=== PATIENT | male | born 1970 | race Two or more races ===

== ENCOUNTER 2016-12-04 14:28 | Emergency (ER) | payer SELFPAY ==
[~2016-12-04] VITALS: Ht 170.2 cm; Wt 108.9 kg
[2016-12-04 15:31] VITALS: BP 183/91
== END 2016-12-04 22:30 | disposition left against medical advice (07) ==
LOC: ER 14:28
DX: R03.0 Elevated blood-pressure reading, without diagnosis of hypertension (principal); Z53.21 Procedure and treatment not carried out due to patient leaving prior to being seen by health care provider

== ENCOUNTER 2021-08-15 13:32 | Emergency (ER) | payer SELFPAY ==
[~2021-08-15] VITALS: Ht 170.2 cm; Wt 106.6 kg
[2021-08-15 14:02] VITALS: BP 185/90
[2021-08-15 15:10] LABS: Basophils # (auto) 0 10 ^3/uL (0-0.2); Basophils % (auto) 0.7 % (0.0-2.0); Eosinophils # (auto) 0 10 ^3/uL (0-0.8); Eosinophils % (auto) 0.7 % (0.0-7.0); Hematocrit 40.5 % (41.0-53.0); Hemoglobin 13.7 g/dL (13.5-17.5); Lymphocytes # (auto) 1.3 10 ^3/uL (0.4-5.4); Lymphocytes % (auto) 19.5 % (10.0-50.0); Mean Corpuscular Hemoglobin 29.5 pg (28.0-32.0); Mean Corpuscular Hgb Conc. 33.8 g/dL (32.0-36.0); Mean Corpuscular Volume 87.4 fL (80.0-100.0); Monocytes # (auto) 0.3 10 ^3/uL (0-1.3); Monocytes % (auto) 3.8 % (0.0-12.0); Neutrophils # (auto) 5.2 10 ^3/uL (1.6-8.6); Neutrophils % (auto) 75.3 % (37.0-80.0); Nucleated Red Blood Cells % 0.1 %; Red Blood Cells 4.64 10^6/uL (4.5-5.90); White Blood Cell 6.9 10^3/uL (4.4-10.8)
[2021-08-15 15:25] LABS: Albumin 3.7 g/dL (3.4-5.0); Calcium 8.5 mg/dL (8.5-10.1); Potassium 3.7 mmol/L (3.5-5.1)
[2021-08-15 15:30] LABS: BUN/Creatinine Ratio 21.2; Bilirubin, Total 0.5 mg/dL (0.2-1.0); Total Protein 7.2 g/dL (6.4-8.2)
[2021-08-15] MEDS ORDERED: ASPirin 81 mg TAB PO ONE (17:45)
== END 2021-08-15 18:58 | disposition left against medical advice (07) ==
LOC: ER 13:32
DX: I16.0 Hypertensive urgency (principal); R94.31 Abnormal electrocardiogram [ECG] [EKG]; Z53.29 Procedure and treatment not carried out because of patient's decision for other reasons
CPT/HCPCS: 36415; 71046; 80053; 84484; 85025; 93005

== ENCOUNTER 2025-02-27 10:55 | Inpatient (IN) | payer MEDICAID ==
[~2025-02-27] VITALS: Ht 170.2 cm; Wt 113.8 kg
--- NOTE | 2025-02-27 11:15 | ED.PDOC ---
History of Present Illness HPI Comments 54-year-old male who is Hungarian-speaking presents to the ER with prior medical history of hypertension and the chief complaint of palpitations. Patient takes two medications for his hypertension but recently ran out of one of the five days ago. Patient states on having palpitation start this morning at 5:00 a.m. with a headache. Denies chills, fever, N/V/D, SOB, CP. No other associated symptoms, modifiers, recent injuries or sick contacts present at this time. Chief Complaint: Palpitations Time Seen by MD: 11:15 Reviewed Notes: Nurses Notes, Medications, Allergies Allergies: Coded Allergies: NO KNOWN ALLERGIES (Unverified , 08/15/21) Information Source: Patient Mode of Arrival: Ambulatory Severity: Moderate Timing: Hours Duration: Since onset, Hours Prehospital treatment: None Past Medical History PAST MEDICAL HISTORY: HTN Surgical History: Denies all surgeries Family History Family History: Reviewed,noncontributory to illness, Unknown Social History Smoker: Non-Smoker Alcohol: Denies ETOH Use Drugs: Denies Drug Use Lives In: Home Constitutional: denies: chills, diaphoresis, fatigue, fever, malaise, sweats, weakness, others EENTM: denies: blurred vision, double vision, ear bleeding, ear discharge, ear drainage, ear pain, ear ringing, eye pain, eye redness, hearing loss, mouth pain, mouth swelling, nasal discharge, nose bleeding, nose congestion, nose pain, photophobia, tearing, throat pain, throat swelling, voice changes, others Respiratory: denies: cough, hemoptysis, orthopnea, SOB at rest, shortness of breath, SOB with excertion, stridor, wheezing, others Cardiovascular: reports: palpitations; denies: chest pain, dizzy spells, diaphoresis, Dyspnea on exertion, edema, irregular heart beat, left arm pain, lightheadedness, PND, syncope, others Gastrointestinal: denies: abdomen distended, abdominal pain, blood streaked bowels, constipated, diarrhea, dysphagia, difficulty swallowing, hematemesis, melena, nausea, poor appetite, poor fluid intake, rectal bleeding, rectal pain, vomiting, others Genitourinary: denies: burning, dysuria, flank pain, frequency, hematuria, incontinence, penile discharge, penile sore, pain, testicle pain, testicle swelling, urgency, others Neurological: reports: headache; denies: dizziness, fainting, left sided numbness, left sided weakness, numbness, paresthesia, pre-existing deficit, right sided numbness, right sided weakness, seizure, speech problems, tingling, tremors, weakness, others Musculoskeletal: denies: back pain, gout, joint pain, joint swelling, muscle pain, muscle stiffness, neck pain, others Integumetry: denies: bruises, change in color, change in hair/nails, dryness, laceration, lesions, lumps, rash, wounds, others Allergic/Immunocompromised: denies: Difficulty Healing, Frequent Infections, Hives, Itching, others Hematologic/Lymphatic: denies: anemia, blood clots, easy bleeding, easy bruising, swollen glands, others Endocrine: denies: excessive hunger, excessive sweating, excessive thirst, excessive urination, flushing, intolerance to cold, intolerance to heat, unexplained weight gain, unexplained weight loss, others Psychiatric: denies: anxiety, bipolar disorder, depression, hopeless, panic disorder, schizophrenia, sleepless, suicidal, others All Other Systems: Reviewed and Negative Physical Exam General Appearance: Moderate Distress, Normal HEENT: Normal ENT Inspection, Pharynx Normal, TMs Normal Neck: Full Range of Motion, Non-Tender, Normal, Normal Inspection Respiratory: Chest Non-Tender, Lungs Clear, No Accessory Muscle Use, No Respiratory Distress, Normal Breath Sounds Cardiovascular: No Edema, No JVD, No Murmur, No Gallop, Normal Peripheral Pulses, Tachycardia Breast Exam: Deferred Gastrointestinal: No Organomegaly, Non Tender, No Pulsatile Mass, Normal Bowel Sounds, Soft Genitalia: Deferred Pelvic: Deferred Rectal: Deferred Extremities: No calf tenderness, Normal capillary refill, Normal inspection, Normal range of motion, Non-tender, No pedal edema Musculoskeletal : Apperance: Normal Neurologic: Alert, 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 Was a procedure done?: No EKG EKG : Pulse Rate (adult): 118 Model: Normal Cardiac Rhythm: ST Block: None Hypertrophy: None ST: Normal Differential Dx Considerations may include: Tachycardia Electrolyte imbalance X-Ray, Labs, Meds, VS Vital Signs Date Time Temp Pulse Resp B/P (MAP) Pulse Ox O2 Delivery O2 Flow Rate FiO2 02/27/25 12:08 121 02/27/25 11:51 98.8 125 18 165/95 (118) 96 98.8 02/27/25 11:51 125 18 95 Room Air 02/27/25 11:16 118 02/27/25 11:05 118 02/27/25 10:57 98.7 127 15 168/93 98 98.7 Lab Test 02/27/25 11:50 02/27/25 11:11 Range/Units Troponin I High Sensitivity 5 4 </=54 ng/L White Blood Count 9.0 4.4-10.8 10^3/uL Red Blood Count 5.14 4.5-5.90 10^6/uL Hemoglobin 14.9 13.5-17.5 g/dL Hematocrit 44.4 41.0-53.0 % Mean Corpuscular Volume 86.4 80.0-100.0 fL Mean Corpuscular Hemoglobin 29.0 28.0-32.0 pg Mean Corpuscular Hemoglobin Concent 33.6 32.0-36.0 g/dL Red Cell Distribution Width 14.8 H 11.8-14.3 % Platelet Count 281 140-450 10^3/uL Mean Platelet Volume 7.3 6.9-10.8 fL Neutrophils (%) (Auto) 72.2 37.0-80.0 % Lymphocytes (%) (Auto) 21.7 10.0-50.0 % Monocytes (%) (Auto) 4.7 0.0-12.0 % Eosinophils (%) (Auto) 0.5 0.0-7.0 % Basophils (%) (Auto) 0.9 0.0-2.0 % Neutrophils # (Auto) 6.5 1.6-8.6 10 ^3/uL Lymphocytes # (Auto) 2.0 0.4-5.4 10 ^3/uL Monocytes # (Auto) 0.4 0-1.3 10 ^3/uL Eosinophils # (Auto) 0 0-0.8 10 ^3/uL Basophils # (Auto) 0.1 0-0.2 10 ^3/uL Nucleated Red Blood Cells 0.1 % Sodium Level 141 136-145 mmol/L Potassium Level 3.8 3.5-5.1 mmol/L Chloride Level 99 98-107 mmol/L Carbon Dioxide Level 31 20-31 mmol/L Anion Gap 11 5-15 Blood Urea Nitrogen 13 9-23 mg/dL Creatinine 0.88 0.700-1.30 mg/dL Glomerular Filtration Rate Calc 103 >90 mL/min BUN/Creatinine Ratio 14.8 10.0-20.0 Serum Glucose 119 H 74-106 mg/dL Calcium Level 9.4 8.7-10.4 mg/dL Total Bilirubin 0.7 0.2-1.0 mg/dL Aspartate Amino Transferase (AST) 48 H 13-40 U/L Alanine Aminotransferase (ALT) 98 H 7-40 U/L Alkaline Phosphatase 102 46-116 U/L Total Protein 7.9 5.7-8.2 g/dL Albumin 4.6 3.2-4.8 g/dL Patient alert. Complaining of palpitations. EKG reviewed does show sinus tachycardia. Blood pressure elevated. Liver profile elevated. WBC within normal limits. Hemoglobin within normal limits. Unknown why he is tachycardic. No leg swelling. No shortness a breath. Explained to the patient. Continue monitoring. Time of 1ST Reevaluation: 11:45 Reevaluation 1ST: Unchanged Patient Education/Counseling: Diagnosis, Treatment, Prognosis Family Education/Counseling: No Family Present SEPSIS Sepsis Screen Date sepsis recognized/suspect: Feb 27, 2025 Time Sepsis recognized/suspect: 1059 Recent Procedure: No On Antibiotic Therapy: No Respiratory Rate >20: No Heart Rate >90: Yes Temp<36 C (96.8 F) or >38.3 C: No SBP <90 or MAP <65 mmHG: No New Acute Mental Status Change: No Is the patient on CPAP, BIPAP,: No Physician Orders Electrocardigram (02/27/25 12:00) Electrocardigram (02/27/25 14:00) Chest Portable (02/27/25 11:13) Vital Signs Date Time Temp Pulse Resp B/P (MAP) Pulse Ox O2 Delivery O2 Flow Rate FiO2 02/27/25 12:08 121 02/27/25 11:51 98.8 125 18 165/95 (118) 96 98.8 02/27/25 11:51 125 18 95 Room Air 02/27/25 11:16 118 02/27/25 11:05 118 02/27/25 10:57 98.7 127 15 168/93 98 98.7 Laboratory Tests Test 02/27/25 11:11 White Blood Count 9.0 10^3/uL (4.4-10.8) Departure 1 Departure Time of Disposition: 13:04 Impression: Primary Impression: Hypertensive urgency Additional Impressions: Sinus tachycardia Elevated liver enzymes Disposition: ADMITTED INPATIENT Admit to: Med Surg Condition: Guarded Critical Care Note Critical Care Time?: Yes (90 min-critical care time only) Stability Stability form required: No I personally scribed for NOE ABEL MD ([email or web address]) on 02/27/25 at 11:15. Electronically submitted by Percy Aceves ([email or web address]). I personally scribed for NOE ABEL MD ([email or web address]) on 02/27/25 at 11:16. Electronically submitted by Percy Aceves ([email or web address]). NOE ABEL MD Feb 27, 2025 11:15
[2025-02-27 11:23] LABS: Hematocrit 44.4 % (41.0-53.0); Hemoglobin 14.9 g/dL (13.5-17.5); Mean Corpuscular Hemoglobin 29.0 pg (28.0-32.0); Mean Corpuscular Volume 86.4 fL (80.0-100.0); Nucleated Red Blood Cells % 0.1 %
[2025-02-27 11:40] LABS: Albumin 4.6 g/dL (3.2-4.8); Alkaline Phosphatase 102 U/L (46-116); Anion Gap 11 (5-15); BUN/Creatinine Ratio 14.8 (10.0-20.0); Blood Urea Nitrogen 13 mg/dL (9-23); Calcium 9.4 mg/dL (8.7-10.4); Carbon Dioxide 31 mmol/L (20-31); Chloride 99 mmol/L (98-107); Potassium 3.8 mmol/L (3.5-5.1); Sodium 141 mmol/L (136-145); Total Protein 7.9 g/dL (5.7-8.2)
[2025-02-27 11:41] LABS: Bilirubin, Total 0.7 mg/dL (0.2-1.0)
--- NOTE | 2025-02-27 11:41 | DVH ---
CHEST RADIOGRAPH Indication: sob Technique: Single frontal view of the chest was obtained Comparison: None FINDINGS: Lines and Tubes: None Lungs: No focal consolidation. Pleura: No effusion. No pneumothorax. Cardiomediastinal contours: Unremarkable Bones: No acute osseous abnormality. IMPRESSION: 1. No acute cardiopulmonary disease.
[2025-02-27 11:42] LABS: Alanine Aminotransferase 98 U/L (7-40); Glucose 119 mg/dL (74-106)
--- NOTE | 2025-02-27 12:09 | ECG ---
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
--- NOTE | 2025-02-27 19:47 | DVH ---
Procedure: CT HEAD WITHOUT CONTRAST Study Date and Requested Time: 02/27/2025 07:04 PM History: throbbong headach, HTN Comparison: None Dose: CTDI: 56.59 mGy DLP: 1.71 mGycm Technique: Multiplanar images obtained through the brain without intravenous contrast. Findings: Normal brain volume and formation. Mild chronic small vessel ischemic changes. No hemorrhages, masses, mass effect, midline shift, herniation or cytotoxic edema following a large v ascular territory. No intra-axial or extra-axial fluid collections. No evidence of hydrocephalus. The basal cisterns are patent. The pituitary gland, sella and parasellar regions are unremarkable. The cerebellar tonsils are in nor mal position. The cerebellum is unremarkable. The orbits and globes are unremarkable. Mucoperiosteal thickening of the anterior ethmoid air cells a nd inferior frontal sinuses. Otherwise, the paranasal sinuses and mastoids are clear. There are no w orrisome calvarial lesions. Impression: No evidence of acute intracranial abnormality. If symptoms Persist, consider MRI for further evaluati on.
[2025-02-27] MEDS ORDERED: ONDANSETRON HCL 4 MG/2 ML VIAL IV PRN (20:00)
[2025-02-27] MEDS ORDERED: TEMAZEPAM 15 MG CAP PO PRN (20:00)
[2025-02-27] MEDS ORDERED: ACETAMINOPHEN 325 MG TAB PO PRN (20:00)
[2025-02-27] MEDS ORDERED: NITROGLYCERIN 0.4 MG SL TAB SL PRN (20:00)
[2025-02-27] MEDS ORDERED: MORPHINE SULFATE INJ 2 MG/ml SYRG IV PRN (20:00)
[2025-02-27] MEDS: LABETALOL HCL 20 MG/4 ML VL IV ONE (21:41)
--- NOTE | 2025-02-27 23:30 | DVHHP2 ---
History of Present Illness Reason for Visit: Palpitations History of Present Illness 54-year-old male presents for evaluation of palpitations. Patient reports running out of his atenolol six days ago. He went to a nearby clinic to get it refilled and he was seen to be tachycardic in the 140s so he was advised to present to the emergency department for further evaluation. He reports palpitations since today in the morning with mild shortness for breath. Denies headache or chest pain. Past Medical History Hypertension Past Surgical History Denies Family History Noncontributory Smoke: No ALCOHOL: none Drugs: None Lives: with Family Review of Systems Review of Systems Review of systems are currently negative otherwise addressed in HPI. Allergies: Coded Allergies: NO KNOWN ALLERGIES (Unverified , 08/15/21) Medications Current Medications Medications Dose Ordered Sig/Candelaria Route Start Time Stop Time Status Last Admin Dose Admin Atenolol 50 mg DAILY PO 02/28/25 10:00 Lisinopril 20 mg DAILY PO 02/28/25 10:00 Hydrochlorothiazide 50 mg DAILY PO 02/28/25 10:00 Temazepam 15 mg QHSP PRN PO 02/27/25 20:00 Ondansetron HCl 4 mg Q4HP PRN IV 02/27/25 20:00 Enoxaparin Sodium 40 mg DAILY SC 02/28/25 10:00 Acetaminophen 650 mg Q6HP PRN PO 02/27/25 20:00 Nitroglycerin 0.4 mg Q5MINP PRN SL 02/27/25 20:00 Morphine Sulfate 2 mg Q30M PRN IV 02/27/25 20:00 Exam Vital Signs Vital Signs Date Time Temp Pulse Resp B/P (MAP) Pulse Ox O2 Delivery O2 Flow Rate FiO2 02/27/25 23:19 98.8 91 16 154/81 (105) 96 98.8 02/27/25 11:51 Room Air Exam Gen: 54-year-old male in mild distress. Skin: Warm, dry, normal color and texture, no rash. HEENT: Normocephalic atraumatic, mucous membranes moist and pink. Neck: Cervical and supraclavicular nodes normal without enlargement, trachea is midline, thyroid gland is normal without masses. Pulmonary: Clear to auscultation and percussion bilaterally. Cardiac: Sinus tachycardia Abdomen: Soft, nontender, nondistended, bowel sounds present all 4 quadrants, no guarding, no rigidity, no organomegaly. Extremities: No cyanosis, clubbing, no edema Neuro: Cranial nerves II through XII grossly intact, normal affect and speech, no focal motor deficits. Labs/Xrays ORDERING PHYSICIAN: NOE ABEL MD PROCEDURE(s): CXRP - CHEST PORTABLE REASON: sob ORDER NUMBER(s): [id number], ACCESSION NUMBER(s): [id number] CHEST RADIOGRAPH Indication: sob Technique: Single frontal view of the chest was obtained Comparison: None FINDINGS: Lines and Tubes: None Lungs: No focal consolidation. Pleura: No effusion. No pneumothorax. Cardiomediastinal contours: Unremarkable Bones: No acute osseous abnormality. IMPRESSION: 1. No acute cardiopulmonary disease. RING PHYSICIAN: AUSTIN BOWIE PROCEDURE(s): HWOCT - HEAD WITHOUT CONTRAST REASON: throbbong headach, HTN ORDER NUMBER(s): [id number], ACCESSION NUMBER(s): [id number] Procedure: CT HEAD WITHOUT CONTRAST Study Date and Requested Time: 02/27/2025 07:04 PM History: throbbong headach, HTN Comparison: None Dose: CTDI: 56.59 mGy DLP: 1.71 mGycm Technique: Multiplanar images obtained through the brain without intravenous contrast. Findings: Normal brain volume and formation. Mild chronic small vessel ischemic changes. No hemorrhages, masses, mass effect, midline shift, herniation or cytotoxic edema following a large vascular territory. No intra-axial or extra-axial fluid collections. No evidence of hydrocephalus. The basal cisterns are patent. The pituitary gland, sella and parasellar regions are unremarkable. The cerebellar tonsils are in normal position. The cerebellum is unremarkable. The orbits and globes are unremarkable. Mucoperiosteal thickening of the anterior ethmoid air cells and inferior frontal sinuses. Otherwise, the paranasal sinuses and mastoids are clear. There are no worrisome calvarial lesions. Impression: No evidence of acute intracranial abnormality. If symptoms Persist, consider MRI for further evaluation. Labs Test 02/27/25 20:00 02/27/25 11:11 Range/Units Troponin I High Sensitivity 5 </=54 ng/L Thyroid Stimulating Hormone (TSH) 2.99 0.55-4.78 uIU/mL White Blood Count 9.0 4.4-10.8 10^3/uL Red Blood Count 5.14 4.5-5.90 10^6/uL Hemoglobin 14.9 13.5-17.5 g/dL Hematocrit 44.4 41.0-53.0 % Mean Corpuscular Volume 86.4 80.0-100.0 fL Mean Corpuscular Hemoglobin 29.0 28.0-32.0 pg Mean Corpuscular Hemoglobin Concent 33.6 32.0-36.0 g/dL Red Cell Distribution Width 14.8 H 11.8-14.3 % Platelet Count 281 140-450 10^3/uL Mean Platelet Volume 7.3 6.9-10.8 fL Neutrophils (%) (Auto) 72.2 37.0-80.0 % Lymphocytes (%) (Auto) 21.7 10.0-50.0 % Monocytes (%) (Auto) 4.7 0.0-12.0 % Eosinophils (%) (Auto) 0.5 0.0-7.0 % Basophils (%) (Auto) 0.9 0.0-2.0 % Neutrophils # (Auto) 6.5 1.6-8.6 10 ^3/uL Lymphocytes # (Auto) 2.0 0.4-5.4 10 ^3/uL Monocytes # (Auto) 0.4 0-1.3 10 ^3/uL Eosinophils # (Auto) 0 0-0.8 10 ^3/uL Basophils # (Auto) 0.1 0-0.2 10 ^3/uL Nucleated Red Blood Cells 0.1 % Sodium Level 141 136-145 mmol/L Potassium Level 3.8 3.5-5.1 mmol/L Chloride Level 99 98-107 mmol/L Carbon Dioxide Level 31 20-31 mmol/L Anion Gap 11 5-15 Blood Urea Nitrogen 13 9-23 mg/dL Creatinine 0.88 0.700-1.30 mg/dL Glomerular Filtration Rate Calc 103 >90 mL/min BUN/Creatinine Ratio 14.8 10.0-20.0 Serum Glucose 119 H 74-106 mg/dL Calcium Level 9.4 8.7-10.4 mg/dL Total Bilirubin 0.7 0.2-1.0 mg/dL Aspartate Amino Transferase (AST) 48 H 13-40 U/L Alanine Aminotransferase (ALT) 98 H 7-40 U/L Alkaline Phosphatase 102 46-116 U/L Total Protein 7.9 5.7-8.2 g/dL Albumin 4.6 3.2-4.8 g/dL SEPSIS Sepsis Screen Date sepsis recognized/suspect: Feb 27, 2025 Time Sepsis recognized/suspect: 1899 Recent Procedure: No On Antibiotic Therapy: No Respiratory Rate >20: No Heart Rate >90: Yes Temp<36 C (96.8 F) or >38.3 C: No SBP <90 or MAP <65 mmHG: No New Acute Mental Status Change: No Is the patient on CPAP, BIPAP,: No Physician Orders Head Without Contrast (02/27/25 18:54) Atenolol Tablet (Tenormin Tablet) (02/28/25 10:00) Lisinopril Tablet (Zestril Tablet) (02/28/25 10:00) Hydrochlorothiazide Tablet (Hydrochlorot (02/28/25 10:00) Basic Metabolic Panel (02/28/25 04:00) Admit (02/27/25 19:46) Temazepam (Restoril) (02/27/25 20:00) Ondansetron Hcl (Zofran) (02/27/25 20:00) Enoxaparin Sodium (Lovenox) (02/28/25 10:00) Cardiac Diet-2gna,Lofat,Lochol (02/28/25 Breakfast) Echo 2d Mode Cardiac Dop (02/27/25 19:46) Condition: Fair (02/27/25 19:46) Acetaminophen Tablet (Tylenol Tablet) (02/27/25 20:00) Bedrest With Bathroom Privileg (02/27/25 19:46) Nitroglycerin Sublingual (Ntrostat Subli (02/27/25 20:00) Morphine Sulfate Injection (02/27/25 20:00) Stat Ekg For Chest Pain (02/27/25 19:46) Notify Md Of Changes From Base (02/27/25 19:46) Police Sergeant Precinct For 24 Hours (02/27/25 19:46) Emergency Dysrhythmia Protocol (02/27/25 19:46) Rhythm Strips Once Every Shift (02/27/25 19:46) Oxygen By Nasal Cannula (02/27/25 19:46) Vital Signs Date Time Temp Pulse Resp B/P (MAP) Pulse Ox O2 Delivery O2 Flow Rate FiO2 02/27/25 23:19 98.8 91 16 154/81 (105) 96 98.8 02/27/25 21:41 100 169/97 02/27/25 21:40 98.4 100 18 169/97 (121) 97 98.4 02/27/25 20:43 100 17 182/94 (123) 02/27/25 19:02 98.0 116 18 187/100 (129) 95 98.0 Medications Medications Dose Ordered Sig/Candelaria Route Start Time Stop Time Status Last Admin Dose Admin Labetalol HCl 10 mg ONCE ONCE IV 02/27/25 20:00 02/27/25 20:02 DC 02/27/25 21:41 10 MG Assessment/Plan Assessment/Plan Assessment Palpitations Accelerated hypertension Plan Admit the patient to telemetry to the hospitalist Resume home medications Echocardiogram pending Continue treatment per orders. Plan discussed with: Patient My Orders Orders - DOLORES AGUILAR Procedure Category Date Status Time Atenolol Tablet PHA 02/28/25 In Process (Tenormin Tablet) 10:00 Lisinopril Tablet PHA 02/28/25 In Process (Zestril Tablet) 10:00 Hydrochlorothiazide PHA 02/28/25 In Process Tablet (Hydrochlorot 10:00 Basic Metabolic Panel LAB 02/28/25 Verified 04:00 Admit ADMIT 02/27/25 Transmitted 19:46 Temazepam (Restoril) PHA 02/27/25 In Process 20:00 Ondansetron Hcl PHA 02/27/25 In Process (Zofran) 20:00 Enoxaparin Sodium PHA 02/28/25 In Process (Lovenox) 10:00 Cardiac DIET 02/28/25 Transmitted Diet-2gna,Lofat,Lochol Breakfast Echo 2d Mode Cardiac US 02/27/25 Logged DOP 19:46 Condition: Fair ASAEL 02/27/25 In Process 19:46 Acetaminophen Tablet PHA 02/27/25 In Process (Tylenol Tablet) 20:00 Bedrest With Bathroom [facility] 02/27/25 In Process Privileg 19:46 Nitroglycerin [facility] 02/27/25 In Process Sublingual (Ntrostat 20:00 Morphine Sulfate [facility] 02/27/25 In Process Injection 20:00 Stat Ekg For Chest [facility] 02/27/25 In Process Pain 19:46 Notify Md Of Changes [facility] 02/27/25 In Process From Base 19:46 Police Sergeant [employer] For [facility] 02/27/25 In Process 24 Hours 19:46 Emergency Dysrhythmia [facility] 02/27/25 In Process Protocol 19:46 Rhythm Strips Once [facility] 02/27/25 In Process Every Shift 19:46 Oxygen By Nasal RT 02/27/25 Transmitted Cannula 19:46 Date of Service: Feb 27, 2025 Billing Provider: DOLORES AGUILAR Common Visit Codes: [id number] INP/OBS CARE (HIGH) DOLORES AGUILAR Feb 27, 2025 23:30
[2025-02-28] VITALS (8 sets, daily range): BP systolic 130–161; BP diastolic 80–87; PULSE 67–97; RESP 16–20; TEMP 36.6; O2SAT 95–98
[2025-02-28] MEDS ORDERED: ENAL1TAB48 PO (02:59)
[2025-02-28] MEDS ORDERED: ATEN50TA PO (02:59)
[2025-02-28] MEDS ORDERED: HYDR25TA4 PO (03:18)
--- NOTE | 2025-02-28 06:13 | ECG ---
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
[2025-02-28 08:03] LABS: Sodium 137 mmol/L (136-145)
[2025-02-28 08:04] LABS: Anion Gap 12 (5-15); Calcium 9.0 mg/dL (8.7-10.4); Carbon Dioxide 28 mmol/L (20-31)
[2025-02-28 08:09] LABS: BUN/Creatinine Ratio 18.9 (10.0-20.0); Blood Urea Nitrogen 14 mg/dL (9-23); Glucose 102 mg/dL (74-106)
[2025-02-28 08:10] LABS: Chloride 97 mmol/L (98-107); Potassium 2.9 mmol/L (3.5-5.1)
[2025-02-28] MEDS: ENOXAPARIN SOD 40 MG/0.4 ML SYRINGE SC SCH (10:00)
[2025-02-28] MEDS: hydroCHLOROthiazide 25 MG TAB PO SCH (10:08)
[2025-02-28] MEDS: ATENOLOL 25 MG TAB PO SCH (10:09)
[2025-02-28] MEDS: LISINOPRIL 20 MG TAB PO SCH (10:10)
--- NOTE | 2025-02-28 14:21 | DVHDS2 ---
Discharge Summary Date of Admission Feb 27, 2025 at 19:46 Date of Discharge: Feb 28, 2025 Admitting Diagnosis Palpitations, accelerated hypertension Labs/Diagnostic Data: Laboratory Results Test 02/28/25 05:57 02/27/25 20:00 02/27/25 11:11 Sodium Level 137 mmol/L (136-145) Potassium Level 2.9 mmol/L (3.5-5.1) Chloride Level 97 mmol/L (98-107) Carbon Dioxide Level 28 mmol/L (20-31) Anion Gap 12 (5-15) Blood Urea Nitrogen 14 mg/dL (9-23) Creatinine 0.74 mg/dL (0.700-1.30) Glomerular Filtration Rate Calc 109 mL/min (>90) BUN/Creatinine Ratio 18.9 (10.0-20.0) Serum Glucose 102 mg/dL (74-106) Calcium Level 9.0 mg/dL (8.7-10.4) Troponin I High Sensitivity 5 ng/L (</=54) Thyroid Stimulating Hormone (TSH) 2.99 uIU/mL (0.55-4.78) White Blood Count 9.0 10^3/uL (4.4-10.8) Red Blood Count 5.14 10^6/uL (4.5-5.90) Hemoglobin 14.9 g/dL (13.5-17.5) Hematocrit 44.4 % (41.0-53.0) Mean Corpuscular Volume 86.4 fL (80.0-100.0) Mean Corpuscular Hemoglobin 29.0 pg (28.0-32.0) Mean Corpuscular Hemoglobin Concent 33.6 g/dL (32.0-36.0) Red Cell Distribution Width 14.8 % (11.8-14.3) Platelet Count 281 10^3/uL (140-450) Mean Platelet Volume 7.3 fL (6.9-10.8) Neutrophils (%) (Auto) 72.2 % (37.0-80.0) Lymphocytes (%) (Auto) 21.7 % (10.0-50.0) Monocytes (%) (Auto) 4.7 % (0.0-12.0) Eosinophils (%) (Auto) 0.5 % (0.0-7.0) Basophils (%) (Auto) 0.9 % (0.0-2.0) Neutrophils # (Auto) 6.5 10 ^3/uL (1.6-8.6) Lymphocytes # (Auto) 2.0 10 ^3/uL (0.4-5.4) Monocytes # (Auto) 0.4 10 ^3/uL (0-1.3) Eosinophils # (Auto) 0 10 ^3/uL (0-0.8) Basophils # (Auto) 0.1 10 ^3/uL (0-0.2) Nucleated Red Blood Cells 0.1 % Total Bilirubin 0.7 mg/dL (0.2-1.0) Aspartate Amino Transferase (AST) 48 U/L (13-40) Alanine Aminotransferase (ALT) 98 U/L (7-40) Alkaline Phosphatase 102 U/L (46-116) Total Protein 7.9 g/dL (5.7-8.2) Albumin 4.6 g/dL (3.2-4.8) Other Laboratory Tests 02/28/25 05:57 02/27/25 11:11 Brief Hx & Hospital Course: History of Present Illness 54-year-old male presents for evaluation of palpitations. Patient reports running out of his atenolol six days ago. He went to a nearby clinic to get it refilled and he was seen to be tachycardic in the 140s so he was advised to present to the emergency department for further evaluation. He reports palpitations since today in the morning with mild shortness for breath. Denies headache or chest pain. Course of hospitalization: Patient had improvement with heart rate and blood pressure with beta-robbi therapy. Patient denies any symptoms. Preliminary results of echocardiogram are unremarkable. Patient will be discharged home as instructed to follow up with his PCP, Dr. Ansari in 1-2 weeks. He will be continued on atenolol 25 mg p.o. daily. All questions answered. Physical examination General: Alert and Oriented x3. No acute distress. Well-nourished. Obese Eyes: EOMI. Anicteric. HENT: Moist mucous membranes. Lungs: Clear to auscultation bilaterally. No accessory muscle use. Cardiovascular: Regular rate and rhythm. No murmur. No JVD. Abdomen: Soft, non-tender and non-distended. No palpable masses. Extremities: No edema. Non-tender. Skin: No rashes or lesions. Warm. Neurologic: No focal neurological deficits. CN II-XII grossly intact, but not individually tested. Psychiatric: Cooperative. Appropriate mood and affect. Total time spent with patient discussing and formulating plan of care: 35 minutes. This medical document was created using an electronic medical record system with [employer] dictation system. Although this document has been carefully reviewed, there may still be some phonetic and typographical errors. These areas are purely typographical due to imperfections of the software programs, and do not reflect any compromise in the patient's medical care. Condition at Discharge: Fair Final Diagnosis/Problems List Accelerated HTN Beta-robbi withdrawal Obesity Hypokalemia Discharge Disposition: Home Discharge Instruct/Medications Diet: Cardiac 2g Na,low cholest Activity: No Restrictions, As Tolerated Follow Up/Referral: Follow up with PCP in 1-2 weeks Medications: Atenolol 25 mg p.o. daily Scheduled Atenolol (Atenolol), 1 TAB PO BID, (Reported) Enalapril Maleate (Enalapril Maleate), 1 TAB PO BID, (Reported) Hydrochlorothiazide (Hydrochlorothiazide), 50 MG PO DAILY, (Reported) 36 Discharge Statement: "Patient was advised to return to the ER or call 911 if any headaches, dizziness, shortness of breath, chest pain, abdominal pain, bleeding, fevers, or worsening of medical condition. Patient was counseled about treatment plan, medications, possible side effects, patientverbalized understanding. All questions were answered to the best of my ability. This discharge took greater then 30 minutes in planning, reviewing documentation, counseling the patient, and discussing with other team members." ASSESSMENT ASSESSMENT Assessment Accelerated HTN Beta-robbi therapy Date of Service: Feb 28, 2025 Billing Provider: LESTER JANE NP Common Visit Codes: 49594-UDV/OBS DISCH DAY >30min LESTER JANE NP Feb 28, 2025 14:21
[2025-02-28] MEDS ORDERED: ATE50T PO (16:11)
[2025-02-28] MEDS: POTASSIUM EFFERVESENT TAB 25 MEQ PO ONE (16:43)
--- NOTE | 2025-03-01 12:59 | DVHSR ---
APPROVED REPORT EXAM: Two-dimensional and M-mode echocardiogram with Doppler and color Doppler. Blood Pressure: 143/83 mmHg INDICATION EF RISK FACTORS Height: 5'7", Weight: 250 DIMENSIONS LVDd4.9 (3.8-5.7cm)LA (2D)4.2 (1.9-4.0cm)Aortic Root3.3 (2.0-3.7cm) LVDs3.0 (2.5-4.0cm)LA (MM) (1.9-4.0cm)Aortic Cusp Exc1.9 (1.5-2.0cm) EF (%) 69.0 (55-70%)Rt. Atrium4.1 (1.9-4.0cm)Asc. Aorta3.3 cm IVSd0.8 (0.7-1.1cm)RV (D) (1.8-2.4cm) PWd0.8 (0.7-1.1cm) Mitral Valve MitralMitral Stenosis E wave0.69m/sMV Mean GR.mmHg A wave1.04m/sMV Peak GR.mmHg E/A ratio0.72D MVAcm2 DECEL Lxtu677kmLXPUG 1/2 [place] Aortic Valve Aortic ValveAortic Stenosis V11.21m/Clarisse Mean GR.4mmHg V21.48m/Clarisse Peak GR.9mmHg LVOT Diameter2.2 (1.8-2.4cm)Doppler AVA3.11cm2 Pulmonic Valve V21.28m/s Tricuspid Valve TR Velocity2.58m/s Other Information Quality : Technically LimitedRhythm : Technically limited study due to body habitus. Conclusion lvef 65% grade 1 diastolic dysfunction normal rv function left atrium enlarged no severe valve abnormalities noted
== END 2025-02-28 18:30 | disposition home or self-care (01) | DRG 199 ==
LOC: ER 10:55 → OVERFLOW 19:46 → TELE-CENTR 02-28 02:50
PROVIDERS: ADMIT Nurse Practitioner Acute Care; ATTEND Nurse Practitioner Acute Care
DX: I16.9 Hypertensive crisis, unspecified (principal); E66.9 Obesity, unspecified; E87.6 Hypokalemia; I10 Essential (primary) hypertension; Z68.39 Body mass index [BMI] 39.0-39.9, adult; Z79.899 Other long term (current) drug therapy; Z91.199 Patient's noncompliance with other medical treatment and regimen due to unspecified reason
CPT/HCPCS: 36415; 70450; 71045; 80048; 80053; 84443; 84484; 85025; 93005; 93306; 96374; 99291; 99292; G0378